=== PATIENT | male | born 1970 | race Caucasian/White ===

== ENCOUNTER → 2021-09-16 13:42 | Outpatient (CLI) | payer OTHER, SELFPAY ==
--- NOTE | ~2021-09-16 | CT_ITS ---
EXAMINATION: CT sinus wo con DATE: 09/16/2021 14:06 INDICATION: Chronic headaches, chronic sinusitis. TECHNIQUE: Computed tomography (CT) of the paranasal sinuses was performed without contrast. Iterativ e reconstruction technique was employed. Exam dose: 306.55 mGy-cm total exam DLP. COMPARISON: None FINDINGS: There is mild leftward bowing of the nasal septum. The nasal turbinates are prominent but relatively symmetric in size. Mild hiren bullosa of left midd le nasal turbinate. The ostiomeatal units are patent. The mastoid air cells are normally developed and aerated. There is minimal septal soft tissue thickening of the ethmoid air cells, greater on the right. There is mild nodular soft tissue thickening at the lower aspect of both maxillary sinuses. The paranasal sinuses are otherwise unremarkable. No fluid levels are noted. IMPRESSION: Mild leftward bowing of nasal septum Prominent soft tissue swelling of the nasal turbinates; mild hiren bullosa of left middle nasal turb inate Minimal septal soft tissue thickening of the ethmoid air cells, greater on the right Mild nodular soft tissue thickening at the lower aspect of both maxillary sinuses Reviewed, dictated and finalized at [facility]. Reviewed, dictated and finalized at [facility]. IMPRESSION: Mild leftward bowing of nasal septum Prominent soft tissue swelling of the nasal turbinates; mild hiren bullosa of left middle nasal turbinate Minimal septal soft tissue thickening of the ethmoid air cells, greater on the right Mild nodular soft tissue thickening at the lower aspect of both maxillary sinus es
== END ==
PROVIDERS: PCP Otolaryngology; Visit Provider Otolaryngology
DX: J32.9 Chronic sinusitis, unspecified (principal); J34.2 Deviated nasal septum
CPT/HCPCS: 70486